=== PATIENT | male | born 1970 | race Caucasian/White ===

== ENCOUNTER 2018-01-04 08:05 | Emergency (ER) | payer BC ==
--- NOTE | 2018-01-04 08:38 | UC ---
Cardiac HPI - HPI Summary HPI Summary: 47 year old male with previous history of HTN not on mesd here with some chest discomfort. Pain worsened with movement and pushing on the center of his chest. No "elephant on chest". No radiating pain. Had same Sx 8 years ago with PCP and had negative work up . Pain 3/10. He does not want to go to ED. No diaphoresis. Was at work and pain came on insidiously. pain does not radiate to back. no history of cardiac issues with patient. non smoker. non diabetic. mom had CT at 68 with risk factors of DM-2 . He did perform some increased physical exertion last week. No pain with exertion. no sob at this time or with exertion . no CP with exertion just with movement of his arms/ chest wall / performing activity similar to a fly/chest work out. no previous otherwise with trauma - History of Current Complaint Chief Complaint: UCChestPain Stated Complaint: CHEST PAIN Time Seen by Provider: 01/04/18 08:14 Hx Obtained From: Patient Onset/Duration: Sudden Onset Timing: Constant Initial Severity: Mild Current Severity: Mild Pain Intensity: 3 Chest Pain Location: Mid Sternal Character: Pressure/Squeezing Aggravating Factor(s): Exertion, Deep Breaths Alleviating Factor(s): Rest Associated Signs & Symptoms: Positive: Chest Pain. Negative: Anxiety, Recent Stress, Weakness, Dizziness, Palpitations, Cough, Hemoptysis, Back Pain, Abdominal Pain - Allergy/Home Medications Allergies/Adverse Reactions: Allergies Allergy/AdvReac Type Severity Reaction Status Date / Time No Known Allergies Allergy Verified 01/04/18 08:10 Home Medications: Home Medications Multivitamins/Minerals TAB* [Theragran/minerals TAB*] 1 tab PO DAILY 01/04/18 [ History Confirmed 01/04/18] PMH/Surg Hx/FS Hx/Imm Hx Previously Healthy: Yes Cardiovascular History: Hypertension - Surgical History Surgical History: None - Family History Known Family History: Positive: Cardiac Disease - mom - Social History Alcohol Use: Occasionally Substance Use Type: None Smoking Status (MU): Former Smoker Type: Cigarettes Review of Systems Cardiovascular: Chest Pain Is Patient Immunocompromised?: No All Other Systems Reviewed And Are Negative: Yes Physical Exam Triage Information Reviewed: Yes Appearance: Well-Appearing, No Pain Distress, Well-Nourished Vital Signs: Initial Vital Signs Temp 98.3 F 01/04/18 08:09 Pulse 63 01/04/18 08:09 Resp 15 01/04/18 08:09 BP 135/79 01/04/18 08:09 Pulse Ox 100 01/04/18 08:09 Vital Signs Reviewed: Yes Eye Exam: Normal ENT Exam: Normal Dental Exam: Normal Neck exam: Normal Neck: Positive: 1 Respiratory Exam: Normal Cardiovascular Exam: Normal Cardiovascular: Positive: Other: - tenderness to palpation mid sternal Musculoskeletal Exam: Normal Neurological Exam: Normal Psychological Exam: Normal Skin Exam: Normal Diagnostics - Laboratory Diagnostic Studies Completed/Ordered: xray neg -- per rads. ekg -- LVH - Assessment/Plan Course Of Treatment: Discussed further work up at ED with labs which can not be done here. I advise to go to ED for labs but he declined and wants to monitor Sx since he had this 8 years ago and it was nothing of concern he states. EKG today shows LVH. Vitals stable. Xray performed. He wants to monitor and treat as chest wall / costochondritis -- he is aware of risks of delayed diagnosis of chest pain / CT / . He will rest at this time and monitor Sx and go to ED if Sx persist or worsen. He is aware and agreeable to plan. - Differential Diagnoses - Chest Pain Differential Diagnosis/HQI/PQRI: Angina, Chest Wall - Clinical Impression Provider Diagnoses: costochondritis Discharge - Sign-Out/Discharge Documenting (check all that apply): Discharge/Admit/Transfer - Discharge Plan Condition: Fair Disposition: HOME Patient Education Materials: Costochondritis (ED) Referrals: No Primary Care Phys,NOPCP [Primary Care Provider] - 1 Day Additional Instructions: As we discussed your EKG, Chest xray and vital signs show no acute concerns. As we discussed this Urgent care setting can not evaluate for chest pain with lab work. Your symptoms are presenting as costochondritis but as we discussed if there is any concern or your symptoms are worsening/ not improving in the next day then go to the emergency room for further evaluation - Billing Disposition and Condition Condition: FAIR Disposition: Home
--- NOTE | 2018-01-04 09:02 | RAD ---
INDICATION: Chest pain COMPARISON: None TECHNIQUE: PA and lateral dual-energy views were obtained. FINDINGS: Bones/Soft Tissues: There are no acute bony findings. Cardiomediastinal: The cardiomediastinal silhouette is normal. Lungs: There are no infiltrates. Pleura: There are no pleural effusions. Other: None IMPRESSION: NO ACTIVE DISEASE.
[2018-01-04 09:47] VITALS: BP 122/77
== END 2018-01-04 09:52 | disposition home or self-care (01) ==
LOC: UCCORT 08:05
DX: M94.0 Chondrocostal junction syndrome [Tietze] (principal); Z82.49 Family history of ischemic heart disease and other diseases of the circulatory system; Z87.891 Personal history of nicotine dependence
CPT/HCPCS: 71046; 93005; 99212; G0463